=== PATIENT | female | born 1980 | race Caucasian/White ===

== ENCOUNTER 2017-01-30 13:32 | Emergency (ER) | payer OTHER | END 2017-01-30 14:30 | disposition home or self-care (01) | LOC: ER 13:32 | DX: M54.5 Low back pain (principal); M25.511 Pain in right shoulder; F31.9 Bipolar disorder, unspecified; E11.9 Type 2 diabetes mellitus without complications; G43.909 Migraine, unspecified, not intractable, without status migrainosus; E05.90 Thyrotoxicosis, unspecified without thyrotoxic crisis or storm; F17.210 Nicotine dependence, cigarettes, uncomplicated; Z90.710 Acquired absence of both cervix and uterus; Z98.51 Tubal ligation status; V49.40XA Driver injured in collision with unspecified motor vehicles in traffic accident, initial encounter ==

== ENCOUNTER 2017-04-09 20:28 | Emergency (ER) | payer OTHER | END 2017-04-09 23:13 | disposition home or self-care (01) | LOC: ER 20:28 | DX: G43.909 Migraine, unspecified, not intractable, without status migrainosus (principal); E05.90 Thyrotoxicosis, unspecified without thyrotoxic crisis or storm; E11.9 Type 2 diabetes mellitus without complications; M81.0 Age-related osteoporosis without current pathological fracture; F31.9 Bipolar disorder, unspecified; F41.9 Anxiety disorder, unspecified; F17.210 Nicotine dependence, cigarettes, uncomplicated; Z90.710 Acquired absence of both cervix and uterus; Z98.51 Tubal ligation status; Z79.899 Other long term (current) drug therapy; Z88.5 Allergy status to narcotic agent; Z88.1 Allergy status to other antibiotic agents; Z88.2 Allergy status to sulfonamides; Z88.6 Allergy status to analgesic agent; Z91.040 Latex allergy status | CPT/HCPCS: 96374; 96375; J0780; J1100; J1200 ==

== ENCOUNTER 2017-05-01 21:11 | Emergency (ER) | payer OTHER | END 2017-05-01 21:50 | disposition home or self-care (01) | LOC: ER 21:11 | DX: H66.92 Otitis media, unspecified, left ear (principal); H60.92 Unspecified otitis externa, left ear; F17.210 Nicotine dependence, cigarettes, uncomplicated; Z88.1 Allergy status to other antibiotic agents; Z88.5 Allergy status to narcotic agent; Z91.040 Latex allergy status; Z79.899 Other long term (current) drug therapy; Z88.2 Allergy status to sulfonamides; Z88.8 Allergy status to other drugs, medicaments and biological substances ==

== ENCOUNTER 2017-05-03 21:17 | Emergency (ER) | payer OTHER | END 2017-05-04 00:20 | disposition home or self-care (01) | LOC: ER 21:17 | DX: F41.1 Generalized anxiety disorder (principal); R55 Syncope and collapse; F41.0 Panic disorder [episodic paroxysmal anxiety]; R10.9 Unspecified abdominal pain; E11.9 Type 2 diabetes mellitus without complications; J44.9 Chronic obstructive pulmonary disease, unspecified; G43.909 Migraine, unspecified, not intractable, without status migrainosus; F17.210 Nicotine dependence, cigarettes, uncomplicated; Z88.1 Allergy status to other antibiotic agents; Z88.5 Allergy status to narcotic agent; Z88.2 Allergy status to sulfonamides; Z91.040 Latex allergy status; Z88.8 Allergy status to other drugs, medicaments and biological substances; Z79.899 Other long term (current) drug therapy | CPT/HCPCS: 36415 ==